=== PATIENT | female | born 1995 | race Caucasian/White ===

== ENCOUNTER 2018-10-09 09:54 | Inpatient (IN) ==
[2018-10-09] MEDS ORDERED: ONDANSETRON 4 MG/2 ML VIAL IV PRN (10:41)
[2018-10-09] MEDS ORDERED: BUTORPHANOL 2 MG/ML VIAL IV PRN (10:41)
[2018-10-09] MEDS ORDERED: LACTATED RINGERS 1,000 ML IV PRN (10:41)
[2018-10-09 10:54] LABS: Basophils % 0.3 % (0.0-0.8); Eosinophils # 0.1 10*3/uL (0.0-0.87); Eosinophils % 0.6 % (0.00-10.9); Hematocrit 34.7 VOL% (35.7-47.0); Hemoglobin 10.6 GM/DL (12.0-16.0); Immature Granulocytes % 0.6 %; Immature Granulocytes Absolute 0.07 #; Lymphocytes # 2.3 10*3/uL (1.4-4.0); Lymphocytes % 19.6 % (21.3-54.2); Mean Corpuscular HGB Conc 30.5 GM/DL (32-36); Mean Corpuscular Volume 86.8 FL (87-102); Mean Platelet Volume 11.1 FL (9.6-12.0); Monocytes % 7.4 % (1.7-12.7); Neutrophils % 71.5 % (38.7-73.9); Platelet Count 282 T/CUMM (130-400); Red Cell Distribution Width 13.4 % (9.3-17.3); White Blood Count 11.9 T/CUMM (4-12)
[2018-10-09] MEDS ORDERED: OXYTOCIN/LR 20 UNIT/1,000 ML BAG IV SCH (11:00)
[2018-10-09] MEDS ORDERED: diphenhydrAMINE 50 MG/1 ML VIAL IV PRN ×2 (11:13)
[2018-10-09] MEDS ORDERED: ONDANSETRON 4 MG/2 ML VIAL IV ONE (11:13)
[2018-10-09] MEDS ORDERED: PROMETHAZINE 25 MG/1 ML VIAL IM ONE (11:13)
[2018-10-09] MEDS ORDERED: FAMOTIDINE 20 MG/2 ML VIAL IV ONE (11:13)
[2018-10-09] MEDS ORDERED: ePHEDrine 50 MG/ML AMP IV PRN ×2 (11:13)
[2018-10-09] MEDS ORDERED: NALOXONE 0.4 MG/ML VIAL IV PRN (11:13)
[2018-10-09] MEDS ORDERED: CITRIC ACID/SODIUM CITRATE 30 ML UDCUP PO ONE (11:13)
[2018-10-09] MEDS ORDERED: hydrOXYzine HCL 25 MG/1 ML VIAL IM PRN (11:13)
[2018-10-09] MEDS ORDERED: fentaNYL 2 MCG/ROPIV 0.2% EPID 100 ML EPIDURAL SCH (11:30)
[2018-10-09] MEDS: LACTATED RINGERS 1,000 ML IV SCH ×2 (12:08→16:50)
[2018-10-09 15:32] LABS: Apearance,Urine CLEAR (Clear); Bilirubin,Urine Negative (Negative); Blood, Urine Small mg/dL (Negative); Glucose,Urine (UA) Negative (Negative); Ketones,Urine Negative (Negative); Mucus,Urine Occasional /LPF (Occasional); Nitrite,Urine Negative (Negative); Protein,Urine Negative; RBC,Urine 1 /HPF (0-4); Squamous Epithelial Cell,Urine Occasional /HPF (0-10); Urine Color Yellow (Yellow); Urine Specific Gravity 1.009 (1.001-1.035); Urine Urobilinogen < 2.0 EU/DL (0.2-1.0); WBC,Urine <1 /HPF (0-6)
[2018-10-09] MEDS ORDERED: miSOPROStol 200 MCG TABLET ONE (19:41)
[2018-10-09] MEDS ORDERED: METHYLERGONOVINE 0.2 MG/1 ML AMP ONE (19:41)
[2018-10-09] MEDS ORDERED: OXYTOCIN/LR 20 UNIT/1,000 ML BAG IV ONE (19:41)
[2018-10-09] MEDS ORDERED: CARBOPROST TROMETHAMINE 250 MCG/ML AMP IM ONE (19:41)
[2018-10-09] MEDS ORDERED: TRANEXAMIC ACID 1,000 MG/10 ML VIAL ONE (19:41)
[2018-10-09] MEDS ORDERED: BISACODYL 10 MG SUPP RECTAL PRN (20:26)
[2018-10-09] MEDS ORDERED: ACETAMINOPHEN 500 MG TABLET PO PRN (20:26)
[2018-10-09] MEDS ORDERED: MAGNESIUM HYDROXIDE SUSP 30 ML UDCUP PO PRN (20:26)
[2018-10-09] MEDS ORDERED: LACTATED RINGERS 1,000 ML IV SCH (20:30)
[2018-10-09 20:44] LABS: Cord Arterial Blood HCO3 19.7 MMOL/L
[2018-10-09 20:58] LABS: Cord Venous Blood HCO3 20.2 MMOL/L; Cord Venous Blood PCO2 39.2 MMHG; Cord Venous Blood PO2 37.8
[2018-10-09] MEDS: KETOROLAC 15 MG/1 ML VIAL IV SCH (21:55)
[2018-10-10] MEDS: KETOROLAC 15 MG/1 ML VIAL IV SCH ×3 (04:00→18:52)
[2018-10-10 05:58] LABS: Basophils % 0.2 % (0.0-0.8); Eosinophils % 0.3 % (0.00-10.9); Hematocrit 29.5 VOL% (35.7-47.0); Hemoglobin 9.1 GM/DL (12.0-16.0); Immature Granulocytes % 0.5 %; Immature Granulocytes Absolute 0.06 #; Lymphocytes # 1.8 10*3/uL (1.4-4.0); Lymphocytes % 14.5 % (21.3-54.2); Mean Corpuscular HGB Conc 30.8 GM/DL (32-36); Mean Corpuscular Volume 84.8 FL (87-102); Mean Platelet Volume 11.4 FL (9.6-12.0); Monocytes % 8.3 % (1.7-12.7); Neutrophils % 76.2 % (38.7-73.9); Platelet Count 212 T/CUMM (130-400); Red Blood Count 3.48 MC/CUMM (3.8-5.5); Red Cell Distribution Width 13.6 % (9.3-17.3); White Blood Count 12.5 T/CUMM (4-12)
[2018-10-10] MEDS: DOCUSATE SODIUM 100 MG CAPSULE PO SCH ×3 (07:46→20:32)
[2018-10-10] MEDS ORDERED: ASPIRIN CHEW 81 MG TABLET PO SCH (09:00)
[2018-10-10] MEDS: MULTIVITAMIN (PRENATAL) TABLET PO SCH (10:21)
[2018-10-10] MEDS ORDERED: BENZOCAINE 20%/MENTHOL 0.5% SPRAY 56 GM CAN TOP PRN (12:33)
[2018-10-10] MEDS: IBUPROFEN 800 MG TABLET PO SCH (22:37)
[2018-10-11] MEDS: IBUPROFEN 800 MG TABLET PO SCH (06:12)
[2018-10-11] MEDS: MULTIVITAMIN (PRENATAL) TABLET PO SCH (08:43)
[2018-10-11] MEDS: DOCUSATE SODIUM 100 MG CAPSULE PO SCH (08:43)
[2018-10-11 13:59] VITALS: BP 116/66
== END 2018-10-11 12:45 | disposition home or self-care (01) | DRG 806 ==
LOC: N.LDOUT 09:54 → N.LD 09:56 → N.OB 23:03
PROVIDERS: ADMIT Obstetrics & Gynecology; ATTEND Obstetrics & Gynecology

== ENCOUNTER 2019-12-29 15:28 | Inpatient (IN) ==
[2019-12-29] MEDS ORDERED: ONDANSETRON 4 MG/2 ML VIAL IV STA (17:11)
[2019-12-29] MEDS ORDERED: HYDROmorphone 2 MG/1 ML VIAL IV STA (17:11)
[2019-12-29] MEDS ORDERED: ONDANSETRON 4 MG/2 ML VIAL ONE (17:12)
[2019-12-29] MEDS ORDERED: HYDROmorphone 2 MG/1 ML VIAL ONE (17:13)
[2019-12-29 17:26] LABS: Basophils % 0.3 % (0.0-0.8); Eosinophils # 0.1 10*3/uL (0.0-0.87); Eosinophils % 0.7 % (0.00-10.9); Hematocrit 39.9 VOL% (35.7-47.0); Hemoglobin 12.5 GM/DL (12.0-16.0); Immature Granulocytes % 0.3 %; Immature Granulocytes Absolute 0.03 #; Lymphocytes # 2.5 10*3/uL (1.4-4.0); Lymphocytes % 21.4 % (21.3-54.2); Mean Corpuscular HGB Conc 31.3 GM/DL (32-36); Mean Corpuscular Volume 84.9 FL (87-102); Mean Platelet Volume 10.7 FL (9.6-12.0); Monocytes % 6.9 % (1.7-12.7); Neutrophils % 70.4 % (38.7-73.9); Platelet Count 351 T/CUMM (130-400); Red Cell Distribution Width 12.5 % (9.3-17.3); White Blood Count 11.5 T/CUMM (4-12)
[2019-12-29] MEDS ORDERED: ONDANSETRON 4 MG/2 ML VIAL IV PRN (17:30)
[2019-12-29] MEDS ORDERED: ACETAMINOPHEN 325 MG TABLET PO PRN (17:30)
[2019-12-29] MEDS ORDERED: MORPHINE 4 MG/1 ML VIAL IV PRN (17:30)
[2019-12-29 17:41] LABS: Bilirubin,Total 0.6 MG/DL (0.2-1.0); Calcium 9.3 MG/DL (8.5-10.1); Osmolality,Calculated 274.8 MOS/KG (273-304); Total Protein 8.1 G/DL (6.4-8.3)
[2019-12-30] MEDS: PANTOPRAZOLE 40 MG TABLET PO SCH (09:08)
[2019-12-31] MEDS: PANTOPRAZOLE 40 MG TABLET PO SCH (08:59)
[2020-01-01] MEDS: PANTOPRAZOLE 40 MG TABLET PO SCH (09:07)
[2020-01-02 08:15] VITALS: BP 115/57
[2020-01-02] MEDS: PANTOPRAZOLE 40 MG TABLET PO SCH (08:47)
== END 2020-01-02 11:54 | disposition home or self-care (01) | DRG 206 ==
LOC: N.ED 15:28 → N.EDINP 17:30 → N.TELEN 18:26
PROVIDERS: ADMIT Surgery; ATTEND Surgery